=== PATIENT | female | born 1975 | race Caucasian/White ===

== ENCOUNTER 2024-01-20 14:09 | Emergency (ER) | payer SELFPAY ==
--- NOTE | 2024-01-20 14:11 | ECG_ITS ---
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 Measurements Intervals [place] Rate: 89 P: 46 AK: 132 QRS: -8 QRSD: 162 T: 145 QT: 418 QTc: 511 Interpretive Statements SINUS RHYTHM LEFT BUNDLE BRANCH BLOCK [120+ ms QRS DURATION, 80+ ms Q/S IN V1/V2, 85+ ms R IN I/aVL/V5/V6] Compared to ECG 01/21/2019 14:08:47 No significant changes Electronically Signed On 01-21-2024 8:33:55 CDT by Singh Ferrara M.D. [id number]
--- NOTE | 2024-01-20 14:11 | XRR_ITS ---
PROCEDURE INFORMATION: Exam: XR Chest Exam date and time: 01/20/2024 3:03 PM Age: 48 years old Clinical indication: Shortness of breath; Additional info: SOB TECHNIQUE: Imaging protocol: Radiologic exam of the chest. Views: 1 view. COMPARISON: CR XR chest 1V [id number] 01/21/2019 2:08 PM FINDINGS: Lungs: No focal consolidation. Pleural spaces: No evidence of pneumothorax. No evidence of pleural effusion. Heart/Mediastinum: Enlarged cardiac silhouette, a component of which may be projectional. Bones/joints: No evidence of acute osseous abnormality. XR/XR chest 1V portable [id number] IMPRESSION: 1. No acute cardiopulmonary abnormality. 2. Enlarged cardiac silhouette. Consider correlation with echocardiography.
[2024-01-20 14:14] VITALS: BP 170/120; PULSE 102; RESP 26; TEMP 36.3; O2SAT 99; BMI 29.2
[2024-01-20 14:44] LABS: Basophils # 0.1 10^3/uL (0.0-0.1); Basophils % 0.7 %; Eosinophils # 0.2 10^3/uL (0.0-0.8); Eosinophils % 1.4 %; Hematocrit 45.6 % (36-47); Lymphocytes % 25.3 %; Mean Corpuscular HGB Conc 32.9 g/dL (30-55); Mean Corpuscular Hemoglobin 32.3 pg (27-33); Mean Corpuscular Volume 98.3 fl (85-98); Mean Platelet Volume 11.2 fL (7.4-10.4); Monocytes # 0.8 10^3/uL (0.2-0.9); Monocytes % 6.6 %; Neutrophils # 7.71 10^3/uL (1.8-7.7); Neutrophils % 65.7 %; Nucleated Red Blood Cells % 0 %; Platelet Count 307 10^3/cmm (157-399); Red Blood Count 4.64 10^6/uL (3.85-5.65); Red Cell Distribution Width 14.1 % (12.1-15.1); White Blood Count 11.74 10^3/uL (3.29-11.43)
[2024-01-20] MEDS: aspirin 81 mg Chew Tablet 324 MG PO (14:46)
[2024-01-20 14:47] VITALS: BP 106/72; PULSE 87; RESP 26; O2SAT 99
--- NOTE | 2024-01-20 14:50 | ED_ITS ---
HPI - SOB/Dyspnea 2 General: Chief Complaint: Shortness of Breath/Dyspnea Stated Complaint: Cant breathe hands clamping Time Seen by Provider: 01/20/24 14:38 Source: patient Mode of arrival: ambulatory Limitations: no limitations History of Present Illness: HPI Narrative: 48-year-old female states that this morn ing she started having some chest pain she states is bandlike pain underneath her chest she states she started feeling very short of breath she started hyperventilating having cramping in her arms with diaphoresis and sweating. She states this is since improved she has no chest pain currently states she feels just hot currently. Denies any vomiting or diarrhea. She is a smoker has a history of high blood pressure no known history of heart disease Associated symptoms: Reports chest pain and nausea; Deny abdominal pain, fever(s) or vomiting Review of Systems 2 Const: Denies: fever(s), chills, body aches or change in appetite Eyes: Denies: eye discomfort ENMT: Denies: throat pain or dental pain Card: Reports: chest pain Resp: Reports: dyspnea GI: Reports: nausea; Denies: abdominal pain, vomiting or diarrhea : Denies: dysuria Musc: Denies: neck pain or back pain Skin/Breast: Denies: rash Neuro: Denies: headache(s) Physical Exam 2 Const: COMMON NORMALS: patient oriented x3 HENMT: COMMON NORMALS: normocephalic and atraumatic HEAD & SCALP: n ormocephalic and atraumatic Neck/C-Spine: COMMON NORMALS: full ROM and supple Chest: COMMONS NORMALS: normal inspection of the chest and normal palpation of entire chest wall Resp: COMMON NORMALS: normal respiratory effort, No retractions, No use of accessory muscles and clear to auscultation bilaterally AUSCULTATION: clear to auscultation bilaterally Cardio: COMMON NORMALS: regular rate, regular rhythm and No murmurs present (Cardio) RATE: regular rate RHYTHM: regular rhythm GI: COMMON NORMALS: Normal to inspection, nondistended, normoactive bowel sounds present, Soft to palpation, non-tender and no masses PALPATION: Yes Soft to palpation Extremity: COMMON NORMALS: normal to inspection and full ROM Neuro: COMMON NORMALS: patient oriented x3, moves all extremities and no focal motor deficits Psych: COMMON NORMALS: mental status grossly normal, Normal thought process present and cooperative THOUGHT PROCESS: Normal thought process present Skin: COMMON NORMALS: no rashes or lesions noted and no wounds GENERAL SKIN EXAM: no rashes or lesions noted Course 2 Reevaluation(s): Reevaluation #1: Patient does have left bundle branch noted on her EKG I have no old EKGs to compare to I have spoke to surveyor chain helper Dr. Mann she is not having active chest pain at this time will not activate Architectural Examiner at this time will trend troponins and see how her pain does Time: 14:52 Vital Signs: Vital signs: Vital Signs Temperature 97.3 F L 01/20/24 14:14 Pulse Rate 73 01/20/24 16:05 Respiratory Rate 24 H 01/20/24 16:05 Blood Pressure 129/82 01/20/24 16:05 Pulse Oximetry 97 01/20/24 16:05 Oxygen Delivery Me thod Room Air 01/20/24 16:05 MDM - SOB/Dyspnea Medical Decision Making Patient presents for chest pain for history of send like she may have had a panic attack Ativan made her feel much improved she has no symptoms at this time she had a delta troponin of 5 I did speak to her and informed her of the results did offer her admission she states she feels much improved and would like to go home I feel she is stable for discharge as well she has no signs of ACS here she has no signs of PE or dissection her pulse ox here has been normal we will get her cardiology follow-up I did inform her if she has any more symptoms of chest pain she is to return immediately she understands and agrees with plan Medical Records I reviewed the patient's medical records. Lab Data I reviewed the patient's lab results. 01/20/24 14:20 01/20/24 14:20 Labs/Radiology: Radiology Impressions Chest X-Ray 01/20/24 14:11 IMPRESSION: 1. No acute cardiopulmonary abnormality. 2. Enlarged cardiac silhouette. Consider correlation with echocardiography. Laboratory Results WBC 11.74 10^3/uL (3.29-11.43) H 01/20/24 14:20 RBC 4.64 10^6/uL (3.85-5.65) 01/20/24 14:20 Hgb 15.00 g/dL (11.27-16.99) 01/20/24 14:20 Hct 45.6 % (36-47) 01/20/24 14:20 MCV 98.3 fl (85-98) H 01/20/24 14:20 MCH 32.3 pg (27-33) 01/20/24 14:20 MCHC 32.9 g/dL (30-55) 01/20/24 14:20 RDW 14.1 % (12.1-15.1) 01/20/24 14:20 Plt Count 307 10^3/cmm (157-399) 01/20/24 14:20 MPV 11.2 fL (7.4-10.4) H 01/20/24 14:20 Neut % (Auto) 65.7 % 01/20/24 14:20 Lymph % (Auto) 25.3 % 01/20/24 14:20 [place] % (Auto) 6.6 % 01/20/24 14:20 Eos % (Auto) 1.4 % 01/20/24 14:20 Baso % (Auto) 0.7 % 01/20/24 14:20 Neut # (Auto) 7.71 10^3/uL (1.8-7.7) H 01/20/24 14:20 Lymph # (Auto) 3.0 10^3/uL (0.8-4.8) 01/20/24 14:20 [place] # (Auto) 0.8 10^3/uL (0.2-0.9) 01/20/24 14:20 Eos # (Auto) 0.2 10^3/uL (0.0-0.8) 01/20/24 14:20 Baso # (Auto) 0.1 10^3/uL (0.0-0.1) 01/20/24 14:20 Nucleated RBC % (auto) 0 % 01/20/24 14:20 Nucleated RBCs # 0.0 /100WBC 01/20/24 14:20 PT 12.30 SECONDS (12.1-14.9) 01/20/24 14:20 INR 0.89 (0.8-1.2) 01/20/24 14:20 Sodium 133 mmol/L (136-145) L 01/20/24 14:20 Potassium 3.7 mmol/L (3.5-5.1) 01/20/24 14:20 Chloride 99 mmol/L (98-107) 01/20/24 14:20 Carbon Dioxide 18 mmol/L (22-29) L 01/20/24 14:20 Anion Gap 19.7 (5-19) H 01/20/24 14:20 BUN 14 mg/dL (6-20) 01/20/24 14:20 Creatinine 0.7 mg/dL (0.5-0.9) 01/20/24 14:20 GFR Calculation 89.3 mL/min (90-130) L 01/20/24 14:20 Glucose 98 mg/dL (65-115) 01/20/24 14:20 Calculated Osmolality 276 mOsm/kg (285-295) L 01/20/24 14:20 Calcium 9.7 mg/dL (8.5-10.5) 01/20/24 14:20 Total Bilirubin 0.3 mg/dL (0.15-1.2) 01/20/24 14:20 AST 27 U/L (0-32) 01/20/24 14:20 ALT 24 U/L (0-33) 01/20/24 14:20 Alkaline Phosphatase 105 U/L (35-105) 01/20/24 14:20 Troponin T Baseline 9 ng/L (0-10) 01/20/24 14:20 Troponin T 120 Minute 14.32 ng/L (0-10) H 01/20/24 16:13 Delta Troponin T 5.32 ABS# (0-10) 01/20/24 16:13 NT-Pro-B Natriuret Pep 845 pg/mL (0-125) H 01/20/24 14:20 Total Protein 7.2 g/dL (6.6-8.7) 01/20/24 14:20 Albumin 3.9 g/dL (3.5-5.2) 01/20/24 14:20 Globulin 3.3 g/dL (1.3-4.6) 01/20/24 14:20 All radiology interpretation(s) finalized by discharge EKG Data EKG 1: I personally reviewed and interpreted this EKG as follows: EKG Interpretation Date: 01/20/24 EKG interpretation time: 14:28 Interpretation: nsr hr 89 no LBBB qrs 162 qtc 465 no old ekgs to compare to EKG 2: I personally reviewed and interpreted this EKG as follows: EKG Interpretation Date: 01/20/24 EKG interpretation time: 16:16 Interpretation: nsr hr [address] or t wave abnormalities qrs 165 qtc 460 Discharge Plan Discharge Patient Disposition: Home Clinical Impression: Chest pain Qualifiers: Chest pain type: unspecified Qualified Code(s): R07.9 - Chest pain, unspecified Condition: Stable Discharge Orders: Discharge ED (Routine); Ordered 01/20/24 Ordered By: Shaw Maxwell Referrals: Singh Ferrara MD [Physician] - 1-3 days Dale Montoya MD [Family Provider] - Discharge Diet: Advance as tolerated Discharge Activity: Resume usual activity Patient Instructions: Chest Pain (ED) Coding Level of Care Code ED Vp Cardiovascular for Chg Regan
[2024-01-20 14:58] LABS: INR 0.89 (0.8-1.2)
[2024-01-20 15:04] LABS: Troponin(5th) Baseline 9 ng/L (0-10)
[2024-01-20 15:13] LABS: Alanine Aminotransferase 24 U/L (0-33); Albumin Level 3.9 g/dL (3.5-5.2); Alkaline Phosphatase 105 U/L (35-105); Anion Gap 19.7 (5-19); Aspartate Amino Transferase 27 U/L (0-32); Blood Urea Nitrogen 14 mg/dL (6-20); Calcium 9.7 mg/dL (8.5-10.5); Carbon Dioxide 18 mmol/L (22-29); Chloride 99 mmol/L (98-107); Creatinine Clr Calc Pharmacy 95.2321; Globulin 3.3 g/dL (1.3-4.6); Glomerular Filtration Rate 89.3 mL/min (90-130); Glucose 98 mg/dL (65-115); NT Pro B Type Natriuretic Pept 845 pg/mL (0-125); Osmolality Calculated 276 mOsm/kg (285-295); Potassium 3.7 mmol/L (3.5-5.1); Sodium 133 mmol/L (136-145); Total Bilirubin 0.3 mg/dL (0.15-1.2); Total Protein 7.2 g/dL (6.6-8.7)
[2024-01-20 15:36] VITALS: BP 137/95; PULSE 74; O2SAT 99
[2024-01-20] MEDS: LORazepam 2 mg/mL INJ 10 mL MDV 1 MG IVP (15:41)
[2024-01-20 16:05] VITALS: BP 129/82; PULSE 73; RESP 24; O2SAT 97
--- NOTE | 2024-01-20 16:11 | ECG_ITS ---
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 Measurements Intervals [place] Rate: 68 P: 19 DC: 156 QRS: -19 QRSD: 165 T: 162 QT: 443 QTc: 471 Interpretive Statements SINUS RHYTHM LEFT BUNDLE BRANCH BLOCK [120+ ms QRS DURATION, 80+ ms Q/S IN V1/V2, 85+ ms R IN I/aVL/V5/V6] Compared to ECG 01/20/2024 14:41:33 No significant changes Electronically Signed On 01-21-2024 8:38:25 CDT by Singh Ferrara M.D. [id number] f
[2024-01-20 16:39] LABS: Troponin 5 2HR 14.32 ng/L (0-10); Troponin 5 2HR Delta 5.32 ABS# (0-10)
--- NOTE | 2024-01-20 17:08 | DCPLANNER ---
Sent followup request to [facility] 01/20/24 @0407
== END 2024-01-20 17:01 | disposition home or self-care (01) ==
PROVIDERS: Emergency Provider Emergency Medicine; Family Provider Surgery
DX: R07.9 Chest pain, unspecified (principal); I44.7 Left bundle-branch block, unspecified
CPT/HCPCS: 36415; 71045; 80053; 83880; 84484; 85025; 85610; 93005; 96374; 99285; J2060

== ENCOUNTER → 2024-04-16 14:58 | Outpatient (BNVA) | payer MEDICAID, SELFPAY | PROVIDERS: Family Provider Surgery; Visit Provider Internal Medicine Cardiovascular Disease | DX: R00.2 Palpitations (principal); R53.83 Other fatigue; R07.9 Chest pain, unspecified; R06.02 Shortness of breath; I44.7 Left bundle-branch block, unspecified | CPT/HCPCS: 99203; 99205 ==

== ENCOUNTER → 2024-07-21 10:00 | Outpatient (BNVA) | payer MEDICAID, SELFPAY | PROVIDERS: Family Provider Surgery; Visit Provider Internal Medicine Cardiovascular Disease | DX: R06.09 Other forms of dyspnea (principal); R00.2 Palpitations; R53.83 Other fatigue; F17.200 Nicotine dependence, unspecified, uncomplicated; I44.7 Left bundle-branch block, unspecified; Z82.49 Family history of ischemic heart disease and other diseases of the circulatory system; R03.0 Elevated blood-pressure reading, without diagnosis of hypertension | CPT/HCPCS: 99214 ==